=== PATIENT | male | born 1985 | race Two or more races ===

== ENCOUNTER 2022-02-12 17:43 | Emergency (ER) | payer OTHER ==
[~2022-02-12] VITALS: Ht 175.3 cm; Wt 74.8 kg
[2022-02-12 18:05] VITALS: BP 117/52
[2022-02-12] MEDS ORDERED: TETANUS-DIPTH-ACEL PERTUSSIS 0.5ML SYR Tdap IM ONE (21:30)
[2022-02-12] MEDS ORDERED: ceFAZolin IM 1GM/2.5ML STERILE WATER IM ONE (21:30)
[2022-02-12] MEDS ORDERED: ceFAZolin 1GM VL ONE (22:28)
[2022-02-12] MEDS ORDERED: CEPH-322 PO (22:55)
== END 2022-02-12 23:07 | disposition home or self-care (01) ==
LOC: ER 17:43
DX: S62.601B Fracture of unspecified phalanx of left index finger, initial encounter for open fracture (principal); S62.603B Fracture of unspecified phalanx of left middle finger, initial encounter for open fracture; W23.0XXA Caught, crushed, jammed, or pinched between moving objects, initial encounter; Y93.89 Activity, other specified; Y92.89 Other specified places as the place of occurrence of the external cause; Y99.8 Other external cause status
CPT/HCPCS: 12002; 73130; 90471; 90715; 96372; 99284; J0690